=== PATIENT | female | born 1970 | race Caucasian/White ===

== ENCOUNTER 2024-03-11 23:51 | Emergency (ER) | payer BC ==
[2024-03-12] MEDS: Albuterol/Ipratropium 3.0-0.5 MG/3 ML Neb Soln NEB ONE (00:36)
[2024-03-12] MEDS: methylPREDNISolone Sodium Succinate 125 MG/2 ML SDV IM ONE (00:36)
== END 2024-03-12 01:00 | disposition home or self-care (01) ==
LOC: JP.ED 23:51
DX: U07.1 COVID-19 (principal); J40 Bronchitis, not specified as acute or chronic; I10 Essential (primary) hypertension; E78.00 Pure hypercholesterolemia, unspecified; Z86.16 Personal history of COVID-19; Z90.49 Acquired absence of other specified parts of digestive tract; Z79.899 Other long term (current) drug therapy
CPT/HCPCS: 94640; 96372; 99283; J2919; J7620